=== PATIENT | male | born 1950 | race Caucasian/White ===

== ENCOUNTER 2017-04-05 07:15 | Day surgery (SDC) | payer MEDICARE, MEDICAID ==
[~2017-04-05] VITALS: Ht 170.2 cm; Wt 57.2 kg
--- NOTE | ~2017-04-05 | OP ---
PATIENT NAME: BIGG MURRIETA MEDICAL RECORD: [id number] :46 LOCATION:[facility] ADMISSION DATE: SURGEON: VALENCIA THOMAS MD DATE OF OPERATION: 04/05/2017 PREOPERATIVE DIAGNOSES: Dyspepsia and history of peptic ulcer disease, now with peripheral vascular disease and cerebrovascular disease, in need for antiplatelet medications and anticoagulants. POSTOPERATIVE DIAGNOSES: Dyspepsia and history of peptic ulcer disease, now with peripheral vascular disease and cerebrovascular disease, in need for antiplatelet medications and anticoagulants. OPERATION PERFORMED: EGD with biopsy of distal esophageal mucosa and electrocautery of a small angiodysplastic lesion in the duodenal bulb. SURGEON: Valencia Thomas MD ANESTHESIA: TIVA per LABOURERS. REFERRING PHYSICIAN: Dr. Almazan is [place]. PREOPERATIVE NOTE: Mr. Murrieta is a 66-year-old white male, smoker with a well known generalized atherosclerotic cardiovascular disease who was referred to me with nonlateralizing and vague symptoms of dizziness and weakness and the findings on a carotid Doppler exam of bilateral stenoses within the bifurcation and internal carotid arteries of 50% to 69% diameter reduction. The patient also has had stents recently placed in his heart by Dr. Moses and also stents in his iliac or femoral vessels. He has been on Coumadin in the past but that was discontinued and also took Plavix for about a month after his latest coronary stent, presently not on any. He also reports symptoms of claudication and symptoms of frequent dyspepsia and heartburn type symptoms. He says he has had a history of a previous bleeding ulcer. I recommended that he have CT angiography of the aorta and runoff vessels to evaluate further his claudication symptoms to see if further intervention is warranted or can be attempted there and also he needs a CT angiogram to better delineate the stenoses present within his carotid arteries. He is to have an EGD today to determine whether or not he has an ulcer or is at significant increased risk for gastrointestinal bleeding with anticoagulants or antiplatelet medications. DESCRIPTION OF PROCEDURE: With the patient under TIVA per LABOURERS in lateral decubitus position, the video gastroscope was passed through the mouth and the pharynx into the upper esophagus. It was advanced downward. The esophagus appeared normal aside from very distally where the Z line was quite irregular. I did take some biopsies of the esophageal mucosa at the Z line. I thought this was consistent perhaps with some reflux, though he did not have a hiatal hernia or any significant laxity or deformation of the GE junction or hiatus apparently on this study. The stomach, cardia, fundus, body, and antrum all appeared normal. The pylorus was normal and the duodenum, first, second and third portions examined were normal with the exception of a small angiodysplastic lesion on the anterior wall of the duodenal bulb. This was about a half a centimeter in diameter. It was treated with gold probe cautery and I was pleased with that result. Insufflated air was suctioned away and the scope withdrawn. OPERATIVE REPORT [id number] BIGG MURRIETA I believe the patient is likely to be of very acceptable risk for Plavix or other antiplatelet therapy. He has had his CT angiogram of the aorta and distal runoff today. He has areas of stenoses which are probably approachable for additional balloon angioplasty and stenting and this may be done likely in the future to help his claudication. He has yet to have his carotid CTA. He is going to be scheduled to come back on Tuesday to have that done and then see me in the office that day. The patient tolerated the procedure well. I am giving him a prescription for Pepcid 20 mg 1 b.i.d., 60 of them with 2 refills, which he is to take to treat his dyspepsia and hopefully act as a prophylaxis against any GI bleeding or ulcer diathesis. TRANSINT:[id number] Voice Confirmation ID: [id number] DOCUMENT ID: [id number] VALENCIA THOMAS MD CC: KAROL ALMAZAN MD [id number] DICTATION DATE: 04/05/17 1448 HEALTH SAFETY AND ENVIRONMENT MANAGER: 04/05/17 2258 [facility] 04/05/17 [id number] [place] [address]
[~2017-04-05 07:15] MED LIST: ALBUTEROL0.63 MG/3 INH; COREG 3.1253.125 MG PO; COZAAR25 MG PO; DALIRESP500 MCG PO; FUROSEMIDE40 MG PO; LIPITOR40 MG PO; NORCO 7.5/325 T1 TA1 PO; OMEPRAZOLE20 M1 PO; POTASSIUM CHLO20 MEQ PO; SINGULAIR10 MG PO; VALIUM5 MG PO; VENTOLIN HFA18 GM INH; ZANTAC150 MG PO
[2017-04-05] MEDS ORDERED: FLINTSTONE1 TAB.CHEW PO (08:05)
[2017-04-05] MEDS ORDERED: ASPIRIN325 MG PO (08:05)
[2017-04-05 08:10] VITALS: Ht 170.2 cm; Wt 57.2 kg
[2017-04-05 08:46] LABS: BASOPHILS 0.5 % (0-2); EOSINOPHILS 1.6 % (0-7); HEMATOCRIT 43.2 % (42.0-54.0); HEMOGLOBIN 13.8 g/dL (13.5-17.5); IMMATURE GRANULOCYTES 0.2 % (0-5); LYMPHOCYTES 26.2 % (15-50); MCH 28.8 pg (26.0-34.0); MCHC 31.9 g/dL (31.0-37.0); MEAN PLATELET VOLUME 10.7 fL (7.4-10.4); MONOCYTES 10.2 % (2-11); NEUTROPHILS 61.3 % (40-80); PLATELET COUNT 196 10x3/uL (130-400); WBC 9.7 10x3/uL (4.8-10.8)
[2017-04-05] MEDS ORDERED: PEPCID20 MG PO (13:16)
--- NOTE | 2017-04-05 15:02 | NUR ---
1325 DRESSED. GIVEN MED REC., [facility] CALLED IN TO [facility], SHEET LISTING NSAIDS TO AVOID FOR 14 DAYS, [facility] OPS D/C INSTRUCTIONS INCLUDING NPO INSTRUCTIONS & TIME TO ARRIVE 04/11/17 FOR 4 VESSEL/CTA WITH WORK IN FOLLOWUP @ DR. THOMAS'S LISTED. PT. VOICED UNDERSTANDING. TO PRIVATE CAR PER WHEELCHAIR. HOME WITH FAMILY. Reji JOE R.N.
== END 2017-04-05 13:25 | disposition home or self-care (01) ==
LOC: D.OPS 07:15
PROVIDERS: Anesthesiology
DX: K20.9 Esophagitis, unspecified (principal); K31.819 Angiodysplasia of stomach and duodenum without bleeding; Z87.11 Personal history of peptic ulcer disease; I70.219 Atherosclerosis of native arteries of extremities with intermittent claudication, unspecified extremity; I25.10 Atherosclerotic heart disease of native coronary artery without angina pectoris; Z95.5 Presence of coronary angioplasty implant and graft; I65.23 Occlusion and stenosis of bilateral carotid arteries; F17.200 Nicotine dependence, unspecified, uncomplicated; Z01.812 Encounter for preprocedural laboratory examination

== ENCOUNTER → 2017-04-11 08:07 | Outpatient (CLI) | payer MEDICARE, MEDICAID ==
[2017-04-05 08:10] VITALS: BMI 19.7
[~2017-04-11 08:07] MED LIST changes: +ASPIRIN325 MG PO; +FLINTSTONE1 TAB.CHEW PO; +PEPCID20 MG PO
== END | disposition home or self-care (01) ==
LOC: D.SP 08:00 → D.OPS 08:00 → D.CT 08:07
DX: R09.89 Other specified symptoms and signs involving the circulatory and respiratory systems (principal)

== ENCOUNTER 2017-05-20 21:34 | Inpatient (IN) | payer MEDICARE, MEDICAID ==
[2017-05-20 22:26] LABS: BASOPHILS 0.1 % (0-2); EOSINOPHILS 0.1 % (0-7); HEMATOCRIT 40.9 % (42.0-54.0); HEMOGLOBIN 13.7 g/dL (13.5-17.5); IMMATURE GRANULOCYTES 4.9 % (0-5); LYMPHOCYTES 9.6 % (15-50); MCH 29.9 pg (26.0-34.0); MCHC 33.5 g/dL (31.0-37.0); MCV 89.3 fL (80.0-100.0); MEAN PLATELET VOLUME 10.3 fL (7.4-10.4); NEUTROPHILS 76.3 % (40-80); PLATELET COUNT 206 10x3/uL (130-400); RBC 4.58 10x6/uL (4.20-6.10); RDW 16.1 % (11.5-14.5); WBC 17.4 10x3/uL (4.8-10.8)
[2017-05-20 22:41] LABS: ALBUMIN 3.2 g/dL (3.4-5.0); BILIRUBIN - TOTAL 0.6 mg/dL (0.2-1.3); CALCIUM 9.1 mg/dL (8.5-10.1); CARBON DIOXIDE 31.4 mmol/L (21.0-32.0); CREATININE - SERUM 1.5 mg/dL (0.6-1.3); POTASSIUM - SERUM 4.4 mmol/L (3.5-5.1); PROTEIN - SERUM 6.5 g/dL (6.4-8.2)
[2017-05-20 23:01] LABS: TROPONIN-I 0.169 ng/mL (0.000-0.060)
[2017-05-21] VITALS (10 sets, daily range): BP systolic 117–163; BP diastolic 76–111; BMI 19.6; BMI 19.5
--- NOTE | 2017-05-21 02:11 | NUR ---
ADMISSION ASSESSMETN, HISTORY COMPLETED. VSS. UCAF PER CM HR 109. O2 2LNC. IV TO LFA SL. PT DENIES ANY DISCOMFORT. FAMILY AT BEDSIDE.
[2017-05-21] MEDS ORDERED: ELIQUIS5 MG PO ×2 (02:18→02:19)
[2017-05-21] MEDS ORDERED: BENZONATATE200 MG PO (02:27)
[2017-05-21] MEDS ORDERED: SYMBICORT 16010.2 GM INH (02:27)
[2017-05-21] MEDS ORDERED: PLAVIX75 MG PO (02:27)
[2017-05-21] MEDS ORDERED: VIBRAMYCIN 100100 MG PO (02:28)
[2017-05-21] MEDS ORDERED: ATROVENT 0.02%2.5 ML UPD (02:29)
[2017-05-21] MEDS ORDERED: MUCINEX600 MG PO (02:29)
[2017-05-21] MEDS ORDERED: XOPENEX 0.0.63 MG/3 UPD (02:30)
[2017-05-21] MEDS ORDERED: NICODERM C1 PATCH .3 (02:30)
[2017-05-21] MEDS ORDERED: FLORAJEN3 CAPS460 MG PO (02:31)
[2017-05-21] MEDS ORDERED: BETAPACE 80 MG80 MG PO (02:31)
[2017-05-21] MEDS ORDERED: PREDNISONE20 MG PO ×3 (02:33→02:35)
[2017-05-21] MEDS ORDERED: PREDNISONE10 MG (02:36)
--- NOTE | 2017-05-21 04:47 | NUR ---
PT CONVERTEDT O SR HR 65. PT RESTING WITH EYES CLOSED. RESP EVEN AND REGULAR. SR UP X2, CALL LIGHT WITHIN REACH.
--- NOTE | 2017-05-21 06:21 | NUR ---
VSS THIS AM. SR PER CM. PT DENIES ANY DISCOMFORT. NEEDS MET; WILL CONTINUE TO MONITOR.
--- NOTE | 2017-05-21 07:35 | NUR ---
PT SITTING UP IN BED WATCHING TV DENIES NEEDS WILL CONT TO MONITOR
--- NOTE | 2017-05-21 17:26 | NUR ---
APPLICATION SYSTEMS ENGINEER YELLED OUT THAT PT WAS IN AFLUTTER RATE 93. PT IS C/O SOB. NO CHEST PAIN. VS ARE ARE WNL. PAGED DR RIOS. DR RIOS SAID TO GIVE PT AN EXTRA DOSE OF THE RYTHMOL ALREADY ORDERED AND NOTIFY HIM IN A COUPLE OF HOURS IF RYTHM DOESNT CHANGE. DONE.
--- NOTE | 2017-05-21 18:10 | NUR ---
CALLED TO PT ROOM PT SOB IS INCREASINGLY WORSE O2 SATS 95% ON 2L. PT STILL IN AFLUTTER 93 BPM. BP IS 196/[address] RIOS. AND RAPID RESPONSE CALLED DR RIOS ORDERED FOR PT TO BE ON CORDORONE DRIP 360 1 MG FOR 6 HOURS THEN CHANGE TO 0.5 MG. DONE AND STARTED. DR COVINGTON ORDERED PT TO GO TO ICU FOR CLOSER MONITORING...
[2017-05-21 18:51] LABS: HEMATOCRIT 39.7 % (42.0-54.0); MCH 29.7 pg (26.0-34.0); MCHC 32.7 g/dL (31.0-37.0); MCV 90.8 fL (80.0-100.0); MEAN PLATELET VOLUME 10.6 fL (7.4-10.4); PLATELET COUNT 186 10x3/uL (130-400); RBC 4.37 10x6/uL (4.20-6.10); RDW 16.3 % (11.5-14.5); WBC 22.2 10x3/uL (4.8-10.8)
[2017-05-21 19:06] LABS: ALBUMIN 2.9 g/dL (3.4-5.0); ALKALINE PHOSPHATASE 110 U/L (46-116); ALT (SGPT) 75 U/L (10-68); BILIRUBIN - TOTAL 0.63 mg/dL (0.2-1.3); CALCIUM 8.4 mg/dL (8.5-10.1); CARBON DIOXIDE 29.1 mmol/L (21.0-32.0); CHLORIDE - SERUM 102 mmol/L (98-107); CREATININE - SERUM 1.6 mg/dL (0.6-1.3); POTASSIUM - SERUM 4.6 mmol/L (3.5-5.1); PROTEIN - SERUM 6.3 g/dL (6.4-8.2); SODIUM 136 mmol/L (136-145); UREA NITROGEN 52 mg/dL (7-18); eGFR NON AFRICAN AMERICAN 46 mL/min (90-120)
--- NOTE | 2017-05-21 19:10 | NUR ---
PATIENT ARRIVED FROM FLOOR VIA BED. PATIENT STATES HE IS BREATHING BETTER NOW. ATRIAL FLUTTER SEEN ON MONITOR WITH A RATE OF 85, CORDARONE DRIP INFUSING @ 1MG/MIN. NC 4L, SAT 98%, AFEBRILE, VSS. LABS REVIEWED AND DR COVINGTON PAGED, ORDERS RECEIVED TO DRAW BLOOD GAS AND CALL BACK WITH RESULTS.
[2017-05-21 19:14] LABS: CKMB 3.3 U/L (0.0-3.6); CREATINE KINASE 45 UL (21-232); PRO BNP 5183 pg/mL (0-125)
[2017-05-21 19:21] LABS: CALC OSMOLALITY 287 mosm/kg (275-300); GLUCOSE 135 mg/dL (74-106); TROPONIN-I 0.133 ng/mL (0.000-0.060)
[2017-05-21 19:44] LABS: LYMPHOCYTES 5 % (15-50); MONOCYTES 5 % (2-11); NEUTROPHILS 79 % (40-80)
[2017-05-21 19:45] LABS: PLATELET ESTIMATE NORMAL
--- NOTE | 2017-05-21 20:30 | NUR ---
DR COVINGTON NOTIFIED WITH BLOOD GAS RESULTS, NO NEW ORDERS.
--- NOTE | 2017-05-21 21:00 | NUR ---
FAMILY AT BEDSIDE, UPDATE GIVEN.
--- NOTE | 2017-05-21 23:00 | NUR ---
REASSESSMENT COMPLETE, PATIENT WAS RESTING WITH EYES CLOSED, VSS, NO ACUTE CHANGES. STATES HE FEELS MUCH BETTER.
[2017-05-22] VITALS (25 sets, daily range): BP systolic 101–166; BP diastolic 85–120
--- NOTE | 2017-05-22 01:00 | NUR ---
PATIENT RESTING IN BED WITH EYES CLOSED. RESTING WELL. VSS. RR EVEN AND NONLABORED.
--- NOTE | 2017-05-22 03:00 | NUR ---
REASSESSMENT COMPLETE, PATIENT STATES "FEELING 100% BETTER" NO ACUTE CHANGES. SEE FLOWSHEET.
[2017-05-22 04:03] LABS: BASOPHILS 0.1 % (0-2); EOSINOPHILS 0 % (0-7); HEMATOCRIT 37.9 % (42.0-54.0); HEMOGLOBIN 12.4 g/dL (13.5-17.5); IMMATURE GRANULOCYTES 3.2 % (0-5); LYMPHOCYTES 7.6 % (15-50); MCH 29.4 pg (26.0-34.0); MCHC 32.7 g/dL (31.0-37.0); MCV 89.8 fL (80.0-100.0); MEAN PLATELET VOLUME 10.4 fL (7.4-10.4); MONOCYTES 5.2 % (2-11); NEUTROPHILS 83.9 % (40-80); PLATELET COUNT 194 10x3/uL (130-400); RBC 4.22 10x6/uL (4.20-6.10); RDW 16.2 % (11.5-14.5); WBC 20.8 10x3/uL (4.8-10.8)
[2017-05-22 04:20] LABS: CALC OSMOLALITY 285 mosm/kg (275-300); CALCIUM 7.9 mg/dL (8.5-10.1); CARBON DIOXIDE 31.2 mmol/L (21.0-32.0); CHLORIDE - SERUM 102 mmol/L (98-107); CKMB 2.7 U/L (0.0-3.6); CREATINE KINASE 42 UL (21-232); CREATININE - SERUM 1.5 mg/dL (0.6-1.3); GLUCOSE 110 mg/dL (74-106); POTASSIUM - SERUM 4.5 mmol/L (3.5-5.1); SODIUM 136 mmol/L (136-145); TROPONIN-I 0.085 ng/mL (0.000-0.060); UREA NITROGEN 48 mg/dL (7-18); eGFR NON AFRICAN AMERICAN 49 mL/min (90-120)
--- NOTE | 2017-05-22 04:49 | NUR ---
PATIENT REFUSED ABG BY RT.
--- NOTE | 2017-05-22 04:49 | NUR ---
PT.REFUSED ABG THIS AM
--- NOTE | 2017-05-22 08:26 | NUR ---
DUE TO BLODDY STOOL THIS AM ELIQUISE HELD UNTIL AFTER MD MAKES ROUNDS SPECIMEN SENT TO LAB
--- NOTE | 2017-05-22 09:15 | NUR ---
AWAKE AND ALERT SKIN WARM AND DRY. MONITOR ATRIAL FIB. CORDARON GTT AT 0.5 MG AT 16.7 ML HOUR. IN LEFT FOREARM. NO REDNESS OR SWELLING AT SITE. VOIDING CLEAR CHIQUI URINE IN URINAL. BREAKFAST SERVED. PULSE OX GOES DOWN WHEN EATING OR USING THE URINAL. DR. COVINGTON NOTIFIED OF BLOODY STOOL
[2017-05-22 10:38] LABS: HEMATOCRIT 42.6 % (42.0-54.0); MCH 29.7 pg (26.0-34.0); MCHC 32.9 g/dL (31.0-37.0); MCV 90.3 fL (80.0-100.0); MEAN PLATELET VOLUME 10.5 fL (7.4-10.4); RBC 4.72 10x6/uL (4.20-6.10); RDW 16.1 % (11.5-14.5); WBC 27.4 10x3/uL (4.8-10.8)
[2017-05-22 10:44] LABS: APTT 26.4 SECONDS (22.8-39.4); INR 1.21 (0.85-1.17); PROTIME 15.2 SECONDS (11.6-15.0)
[2017-05-22 16:31] LABS: HEMATOCRIT 40.5 % (42.0-54.0); HEMOGLOBIN 13.6 g/dL (13.5-17.5)
--- NOTE | 2017-05-22 16:54 | NUR ---
LAB REPORTS PTT AT 193.4, REDRAWING. LAST PTT 26.4. PHLABOTAMIST NAHOMY BLOOD OUT OF ARM THAT HEPARIN WAS INFUSING IN.
--- NOTE | 2017-05-22 18:05 | NUR ---
HEAPRIN GTT OFF FOR 1 HOUR FROM 1650 TO 1750 RESTARTED AT 1000 UNITS AN HOUR
--- NOTE | 2017-05-22 19:45 | NUR ---
SHIFT ASSESSMENT COMPLETE AT THIS TIME. HE DENIES ANY PAIN. A&O X4. NC @ 2 L/MIN, RR REGULAR AND UNLABORED, LUNG SOUNDS CLEAR THROUGHOUT ALL LOBES. S1S2 AUDIBLE, HR 83 BPM, NORMAL SINUS RHYTHM. ABD IS FLAT, NONTENDER TO TOUCH, BS ACTIVE X4. RADIAL AND PEDAL PULSES PALP. L FOREARM PIV PROTONIX @ 10 ML/HR, AMIODARONE @ 0.5 MG/MIN. R FOREARM PIV INFUSING HEAPRIN @ 1000 UN/HR. REPOSITIONED FOR COMFORT. HE DENIES ANY REQUESTS. CALL LIGHT IN REACH. BED IN LOWEST POSITION. WILL CONT WITH POC.
--- NOTE | 2017-05-22 21:00 | NUR ---
FAMILY AT BEDSIDE. PT STATES THAT HE FEELS WEAK AT THIS TIME. ATE BANANA AND STATES THAT HE FEELS BETTER. VSS. REPOSITIONED FOR COMFORT. WILL CONT WITH POC.
--- NOTE | 2017-05-22 22:30 | NUR ---
PTT 162.7. DECREASED HEPARIN TO 700 UN/HR AND HELD FOR ONE HOUR PER PROTOCOL.
--- NOTE | 2017-05-22 23:30 | NUR ---
RESTARTED HEPARIN @ 700 UN/HR NEXT SCHEDULED PTT IS AT 0430 ON 05/23/17 WILL CONT WITH POC.
[2017-05-23] VITALS (24 sets, daily range): BP systolic 118–161; BP diastolic 90–122
--- NOTE | 2017-05-23 01:00 | NUR ---
PT RESTING PEACEFULLY ON HIS BACK WITH NO SIGNS OF DISTRESS NOTED. VSS. WILL CONT WITH POC.
--- NOTE | 2017-05-23 03:00 | NUR ---
REASSESSMENT COMPLETE. BP IS ELEVATED. ADMINISTERED PRN LABETALOL. WILL CONT TO MONITOR BP. NO FURTHER CHANGES NOTED. REFILLED REFRESHMENTS. REPOSITIONED FOR COMFORT. CALL LIGHT IN REACH. WILL CONT TO MONITOR.
--- NOTE | 2017-05-23 05:00 | NUR ---
PTT 97.9 PAUSED HEPARIN FOR 30 MIN WILL DECREASE BY 100 UN AND REDRAW IN 6 HRS. PT VSS. BP 123/92 AT THIS TIME. PT STATES THAT HE IS FEELING MUCH BETTER. REFILLED REFRESHMENTS. WILL CONT WITH POC.
[2017-05-23 05:09] LABS: BASOPHILS 0.1 % (0-2); EOSINOPHILS 0 % (0-7); HEMATOCRIT 37.7 % (42.0-54.0); HEMOGLOBIN 12.7 g/dL (13.5-17.5); IMMATURE GRANULOCYTES 2.7 % (0-5); LYMPHOCYTES 6.5 % (15-50); MCH 29.6 pg (26.0-34.0); MCHC 33.7 g/dL (31.0-37.0); MEAN PLATELET VOLUME 10.7 fL (7.4-10.4); NEUTROPHILS 88.7 % (40-80); PLATELET COUNT 206 10x3/uL (130-400); RBC 4.29 10x6/uL (4.20-6.10)
[2017-05-23 05:14] LABS: WBC 19.4 10x3/uL (4.8-10.8)
[2017-05-23 05:15] LABS: INR 1.19 (0.85-1.17); MCV 87.9 fL (80.0-100.0)
[2017-05-23 05:17] LABS: APTT 97.9 SECONDS (22.8-39.4)
[2017-05-23 05:28] LABS: ANION GAP 13.4 mmol/L (8-16); BILIRUBIN - TOTAL 0.7 mg/dL (0.2-1.3); CALCIUM 8.3 mg/dL (8.5-10.1); CARBON DIOXIDE 29.6 mmol/L (21.0-32.0); PROTEIN - SERUM 6.2 g/dL (6.4-8.2)
[2017-05-23 05:43] LABS: CREATININE - SERUM 1.9 mg/dL (0.6-1.3)
--- NOTE | 2017-05-23 07:15 | NUR ---
PT ALERT AND ORIENTED, VSS, DENIES PAIN, PIV TO LEFT AND RIGHT FOREARM CDI, CONTINUES ON HEPARIN, AMIODARONE, AND PROTONIX, ASSESSMENT COMPLETED, WILL CONTINUE TO MONITOR
--- NOTE | 2017-05-23 09:00 | NUR ---
PT REPSOITIONS SELF DENIES PAIN AND ALL NEEDS, FAMILY IN ROOM FOR VISITATION, WILL CONTINUE TO MONITOR
--- NOTE | 2017-05-23 10:20 | NUR ---
NUTRITION F/U CHART REVIEWED. PT CURRENTLY SLEEPING. NURSING REPORTS PT WITH GOOD INTAKE AHA BREAKFAST. ENSURE AT BEDSIDE. WILL CONTINUE TO PROVIDE DIET, ENSURE. MONITOR PO INTAKE. RD FOLLOWING
--- NOTE | 2017-05-23 11:09 | NUR ---
NO CHANGES NOTED, VSS, APTT 69.4, NO HEPARIN RATE CHANGES, NO BOLUS, WILL REDRAW IN AM PER PROTOCOL, WILL CONTIN UE TO MONITOR
--- NOTE | 2017-05-23 12:53 | NUR ---
* Is the patient Alert and Oriented? Yes 0 * How many steps to enter\exit or inside your home? 1 0 * PCP Dr. Almazan 0 * [facility] 0 * Preadmission Environment Home with Family 0 * ADLs Partial Dependent 0 * Partial ADLs (Assistance needed) Ambulation 0 * Equipment Cane Nebulizer Oxygen 0 * List name and contact numbers for known caregivers / representatives who currently or will assist patient after discharge: Spouse - Chasity [phone] Daughter - Samantha [phone] 0 * Additional services required to return to the preadmission environment? Yes 0 * Can the patient safely return to the preadmission environment? Yes 0 * Has this patient been hospitalized within the prior 30 days at any hospital? Yes 05/23/2017 12:53 DCP: Discharge Planning Patient Name: BIGG ORTIZ Admission Status: ER Accout number: [id number] Admission Date: 05-20-2017 : 1950 Admission Diagnosis: Attending: NORM COVINGTON Current LOS: 3 Planned Disposition: Home with Home Health Primary Insurance: [employer]ARE ADV Discharge Planning Comments: CM met with patient to assess dc plans/needs. Patient states he lives at home with his , Chasity. He reports he uses a cane for mobility. He also uses a nebulizer and has home O2 @ 2L. He is currently on service with [employer] & wants to resume their services at discharge. CM will follow & assist as needed. Grizzly Worker: Mercedes Kearney
--- NOTE | 2017-05-23 13:04 | NUR ---
PT REFUSED LUNCH, KEPT ENSURE AND STATED HE WILL TRY TO DRINK IT, VSS, DENIES PAIN, REPOSITIONED, WILL CONTINUE TO MONITOR
--- NOTE | 2017-05-23 14:28 | NUR ---
PT HAD ONE FORMED DARK STOOL, TAKEN TO LAB, DENIES ALL NEEDS, WILL CONTIN UE TO MONITOR
--- NOTE | 2017-05-23 14:57 | NUR ---
pt to transfer to room 2140, report called to rita
--- NOTE | 2017-05-23 17:09 | NUR ---
PT REPOSITIONED FOR DINNER, VSS, DENIES PAIN AND ALL NEEDS, CONTINUES ON AMIODARONE, HEPARIN AND PROTONIX DRIPS, SEE FLOWSHEET, WILL CONTINUE TO MONITOR
--- NOTE | 2017-05-23 19:30 | NUR ---
REC'D PT SITTING UP IN BED ON O2 @ 2 LITERS, AWAKE, ALERT, ORIENTED X 4, RIGHT FOREARM PIV PATENT WITH HEPARIN INFUSING @ 600 UNITS/HR, LEFT FOREARM PIV PATENT WITH PROTONIX @ 10CC/HR AND NEXTERONE @ 16.7CC/HR, PT GODINEZ'S , PT DENIES PAIN, BILAT SCD'S AND SOCKS ON, SR UP X 2, BED IN LOW POSITION, CALL LIGHT IN REACH.
--- NOTE | 2017-05-23 21:00 | NUR ---
FAMILY @ BS, UPDATE GIVEN AND QUESTIONS ANSWERED.
--- NOTE | 2017-05-23 22:00 | NUR ---
EVENING MEDS GIVEN, URINAL EMPTIED OF 325 CLEAR YELLOW URINE, PT DENIES NEEDS, WILL CONT TO MONITOR FOR CHANGES.
--- NOTE | 2017-05-23 23:15 | NUR ---
PT RESTING IN BED WATCHING TV, BP ELEVATED, PT DENIES PAIN OR NEEDS, SR UP X 2, CALL LIGHT IN REACH.
[2017-05-24] VITALS (46 sets, daily range): BP systolic 104–169; BP diastolic 86–118
--- NOTE | 2017-05-24 01:00 | NUR ---
PT RESTING ON RIGHT SIDE EYES CLOSED, RESP EVEN AND UNLABORED, VSS, WILL CONT TO MONITOR FOR CHANGES.
--- NOTE | 2017-05-24 03:00 | NUR ---
NO CHANGES IN STATUS AT THIS TIME
--- NOTE | 2017-05-24 03:45 | NUR ---
REASSESSMENT COMPLETED, NO CHANGES FROM PREVIOUS ASSESSMENT.
--- NOTE | 2017-05-24 04:15 | NUR ---
LAB AT FOR AM LAB DRAW, PT AWAKE REQUESTING COFFEE, COFFEE AND CUP OF ICE PROVIDED, PT DENIES FURTHER NEEDS.
[2017-05-24 04:16] LABS: BASOPHILS 0.1 % (0-2); EOSINOPHILS 0 % (0-7); HEMATOCRIT 36.1 % (42.0-54.0); HEMOGLOBIN 12.2 g/dL (13.5-17.5); IMMATURE GRANULOCYTES 1.7 % (0-5); LYMPHOCYTES 3.8 % (15-50); MCH 29.5 pg (26.0-34.0); MCHC 33.8 g/dL (31.0-37.0); MCV 87.2 fL (80.0-100.0); MEAN PLATELET VOLUME 10.5 fL (7.4-10.4); MONOCYTES 3.1 % (2-11); NEUTROPHILS 91.3 % (40-80); PLATELET COUNT 216 10x3/uL (130-400); RBC 4.14 10x6/uL (4.20-6.10); RDW 15.8 % (11.5-14.5); WBC 30.8 10x3/uL (4.8-10.8)
[2017-05-24 04:23] LABS: ALBUMIN 2.8 g/dL (3.4-5.0); ANION GAP 9.6 mmol/L (8-16); BILIRUBIN - TOTAL 0.69 mg/dL (0.2-1.3); CALCIUM 8.3 mg/dL (8.5-10.1); CARBON DIOXIDE 30.7 mmol/L (21.0-32.0); CREATININE - SERUM 1.8 mg/dL (0.6-1.3); MAGNESIUM - SERUM 2.1 mg/dL (1.8-2.4); POTASSIUM - SERUM 4.3 mmol/L (3.5-5.1); PROTEIN - SERUM 6.1 g/dL (6.4-8.2)
--- NOTE | 2017-05-24 06:30 | NUR ---
AT BS UPDATE GIVEN AND QUESTIONS ANSWERED, AM MEDS GIVEN, PT DENIES PAIN OR NEEDS, SR UP X 2, CALL LIGHT IN REACH.
--- NOTE | 2017-05-24 07:30 | NUR ---
REPORT RECEIVED. ASSUMED CARE OF PATIENT. PT AWAKE, CURRENTLY WITH BREATHING TREATMENT IN PROCESS.
--- NOTE | 2017-05-24 11:00 | NUR ---
PT SITTING UP IN BED. JUST FINISHED URINATING. 400ML OUT. ASKING FOR ICE WATER.
--- NOTE | 2017-05-24 13:45 | NUR ---
PAGED DR PETERS ABOUT ELEVATED WBC AND ONLY ON ORAL ABX. SAYS HE SPOKE WITH DR REGALADO ABOUT IT. DOES NOT FEEL IS DUE TO INFECTION, XRAY CLEAR. WILL CONTINUE TO MONITOR. ALSO TO STOP AMIODARONE DRIP AND START ORAL 200MG BID THIS EVENING.
--- NOTE | 2017-05-24 13:57 | NUR ---
AMIODARONE DRIP TURNED OFF. PT SLEEPING AT THIS TIME. NO DISTRESS NOTED. CONSUMED 25% OF LUNCH.
--- NOTE | 2017-05-24 15:54 | NUR ---
PT SLEEPING AT THIS TIME. NO DISTRESS NOTED.
--- NOTE | 2017-05-24 19:50 | NUR ---
REPORT REC'D AND CARE ASSUMED, REC'D PT AWAKE, ALERT, ORIENTED X 3, O2 @ 2LITERS VIA NCA, LEFT FOREARM PIV WITH PROTONIX @ 8MG/HR OR 10CC/HR AND RIGHT FOREARM PIV WITH HEPARIN INFUSING @ 400 UNITS/HR, PT MAEE, PT DENIES PAIN OR NEEDS, BED IN LOW POSITION, CALL LIGHT IN REACH.
--- NOTE | 2017-05-24 21:00 | NUR ---
EVENING MEDS GIVEN, AT BS, QUESTIONS ANSWERED, PT DENIES NEEDS, CALL LIGHT IN REACH.
--- NOTE | 2017-05-24 23:08 | NUR ---
REASSESSMENT COMPLETED, VSS, PT RESTING ON LEFT SIDE EYES CLOSED, ROUTINE MEDS GIVEN, WILL CONT TO MONITOR FOR CHANGES.
[2017-05-25] VITALS (21 sets, daily range): BP systolic 126–170; BP diastolic 86–120
--- NOTE | 2017-05-25 01:30 | NUR ---
URINAL EMPTIED OF 400CC CLEAR YELLOW URINE, VSS, PT RESTING IN BED EYES CLOSED, RESP EVEN AND UNLABORED, VSS.
--- NOTE | 2017-05-25 03:10 | NUR ---
REASSESSMENT COMPLETED, NO CHANGES FROM PREVIOUS ASSESSMENT, VSS, WILL MONITOR CLOSELY FOR CHANGES.
--- NOTE | 2017-05-25 04:00 | NUR ---
LAB AT FOR AM LAB DRAW
[2017-05-25 05:08] LABS: BASOPHILS 0 % (0-2); EOSINOPHILS 0 % (0-7); HEMOGLOBIN 11.9 g/dL (13.5-17.5); IMMATURE GRANULOCYTES 2.2 % (0-5); LYMPHOCYTES 3.7 % (15-50); MCH 29.7 pg (26.0-34.0); MCV 87.3 fL (80.0-100.0); MEAN PLATELET VOLUME 10.8 fL (7.4-10.4); MONOCYTES 1.8 % (2-11); NEUTROPHILS 92.3 % (40-80); PLATELET COUNT 222 10x3/uL (130-400); RBC 4.01 10x6/uL (4.20-6.10); WBC 22.3 10x3/uL (4.8-10.8)
[2017-05-25 05:10] LABS: INR 1.13 (0.85-1.17); PROTIME 14.4 SECONDS (11.6-15.0)
[2017-05-25 05:14] LABS: ALBUMIN 2.8 g/dL (3.4-5.0); BILIRUBIN - TOTAL 0.81 mg/dL (0.2-1.3); CALCIUM 7.8 mg/dL (8.5-10.1); CARBON DIOXIDE 29.1 mmol/L (21.0-32.0); CREATININE - SERUM 1.8 mg/dL (0.6-1.3); POTASSIUM - SERUM 4.1 mmol/L (3.5-5.1); PROTEIN - SERUM 5.9 g/dL (6.4-8.2)
--- NOTE | 2017-05-25 06:30 | NUR ---
AM MEDS GIVEN, AT BS, UPDATE GIVEN AND QUESTIONS ANSWERED, ICE WATER PROVIDED ON REQUEST.
--- NOTE | 2017-05-25 19:30 | NUR ---
REPORT REC'D AND CARE ASSUMED, REC'D PT AWAKE, ALERT, ORIENTED X 4, LEFT FOREARM PIV AND RIGHT FOREARM PIV SALINE LOCKED, BOTH SITES WITHOUT REDNESS OR EDEMA, PT MAEE, PT DENIES PAIN OR NEEDS, BED IN LOW POSITION CALL LIGHT IN REACH.
--- NOTE | 2017-05-25 21:00 | NUR ---
EVENING MEDS GIVEN ORDERED, PT DENIES NEEDS.
--- NOTE | 2017-05-25 21:15 | NUR ---
REPORT CALLED TO REYNALDO XIE ON MED II, PT TRANSPORTED VIA WHEELCHAIR.
--- NOTE | 2017-05-25 21:33 | NUR ---
ARRIVED TO FLOOR VIA WHEELCHAIR, ACCOMPANIED BY HOSPITAL STAFF AND FAMILY. PLACED ON TELEMETRY. CALL LIGHT IN REACH. WILL CONTINUE TO MONITOR.
--- NOTE | 2017-05-25 22:24 | NUR ---
UP TO SHOWER, FAMILY IN ROOM. WILL CONTINUE TO MONITOR.
--- NOTE | 2017-05-25 23:42 | NUR ---
IV TO RIGHT FOREARM LEAKING, DC'D WITH TIP INTACT. AT BEDSIDE, CALL LIGHT IN REACH.
[2017-05-26] VITALS: BP 170/103
--- NOTE | 2017-05-26 00:53 | NUR ---
CORRECTIONAL MANAGER AT BEDSIDE TO OBTAIN VITALS, CALL LIGHT IN REACH. WILL CONTINUE WITH PLAN OF CARE.
[2017-05-26 05:06] LABS: BASOPHILS 0.1 % (0-2); EOSINOPHILS 0 % (0-7); HEMATOCRIT 35.4 % (42.0-54.0); HEMOGLOBIN 11.9 g/dL (13.5-17.5); IMMATURE GRANULOCYTES 1.5 % (0-5); LYMPHOCYTES 5.6 % (15-50); MCH 29.3 pg (26.0-34.0); MCHC 33.6 g/dL (31.0-37.0); MCV 87.2 fL (80.0-100.0); MEAN PLATELET VOLUME 10.9 fL (7.4-10.4); MONOCYTES 4.1 % (2-11); NEUTROPHILS 88.7 % (40-80); PLATELET COUNT 234 10x3/uL (130-400); RBC 4.06 10x6/uL (4.20-6.10); RDW 16.1 % (11.5-14.5); WBC 18.3 10x3/uL (4.8-10.8)
[2017-05-26 05:32] LABS: INR 1.66 (0.85-1.17); PROTIME 19.6 SECONDS (11.6-15.0)
[2017-05-26 05:39] LABS: ANION GAP 8.4 mmol/L (8-16); CALCIUM 8.5 mg/dL (8.5-10.1); CREATININE - SERUM 1.8 mg/dL (0.6-1.3); POTASSIUM - SERUM 4.4 mmol/L (3.5-5.1)
--- NOTE | 2017-05-26 06:52 | NUR ---
NO CHANGES FROM PREVIOUS ASSESSMENT, CALL LIGHT IN REACH. WILL CONTINUE TO MONITOR.
--- NOTE | 2017-05-26 07:30 | NUR ---
RECEIVED PT IN BED EYES CLOSED RESP UNLABORED NAD NOTED
--- NOTE | 2017-05-26 07:49 | NUR ---
received pt in bed eyes closed resp unlabored nad nnoted
[2017-05-26 08:06] VITALS: BP 155/100
[2017-05-26 12:01] VITALS: BP 125/86
[2017-05-26 12:23] VITALS: BP 125/86
--- NOTE | 2017-05-26 13:23 | NUR ---
Nutrition Follow Up: Pt stated that his appetite was poor. He said that he felt very nauseated. Pt refused Ensure at this time stating that it made him sick. Pt said that his appetite has been decreased for the past week. Pt is eating 63% meal avg on an AHA diet. He is receiving Ensure BID. Wt loss since admit noted. Meds reviewed including Bumex, Prednisone. Labs noted. +BM 05/24/17. Rec continue current diet. Will d/c Ensure BID; pt may continue to order Ensure off menu if nausea resolves. RD following.
[2017-05-26 20:00] VITALS: BP 106/71
[2017-05-27] VITALS: BP 104/75
[2017-05-27 04:00] VITALS: BP 119/63; BP 134/76
[2017-05-27 05:22] LABS: BASOPHILS 0.1 % (0-2); EOSINOPHILS 0.1 % (0-7); HEMATOCRIT 34.6 % (42.0-54.0); HEMOGLOBIN 11.4 g/dL (13.5-17.5); IMMATURE GRANULOCYTES 1.8 % (0-5); LYMPHOCYTES 8.1 % (15-50); MCH 29.3 pg (26.0-34.0); MCHC 32.9 g/dL (31.0-37.0); MCV 88.9 fL (80.0-100.0); MEAN PLATELET VOLUME 10.7 fL (7.4-10.4); NEUTROPHILS 86.9 % (40-80); PLATELET COUNT 219 10x3/uL (130-400); RBC 3.89 10x6/uL (4.20-6.10); RDW 16.5 % (11.5-14.5)
[2017-05-27 05:27] LABS: WBC 13.6 10x3/uL (4.8-10.8)
[2017-05-27 05:31] LABS: ANION GAP 7.9 mmol/L (8-16); CALCIUM 8.2 mg/dL (8.5-10.1); CREATININE - SERUM 1.7 mg/dL (0.6-1.3); POTASSIUM - SERUM 4.9 mmol/L (3.5-5.1)
[2017-05-27 05:40] LABS: INR 2.94 (0.85-1.17); PROTIME 30.9 SECONDS (11.6-15.0)
[2017-05-27 07:38] VITALS: BP 130/97
--- NOTE | 2017-05-27 11:31 | CN ---
PATIENT NAME:BIGG ORTIZ MEDICAL RECORD: [id number] : [birth year] [place] [place]MIT DATE: 05/20/17 ACCOUNT: [id number] CONSULTING PHYSICIAN: ANN MARIE RIOS MD REFERRING PHYSICIAN: NORM COVINGTON DO DATE OF CONSULTATION: 05/21/2017 HISTORY OF PRESENT ILLNESS: A 66-year-old gentleman with multiple medical problems including severe COPD, paroxysmal atrial fibrillation with exacerbations as of late, admitted with worsening shortness of breath over the past 2-3 days, has baseline shortness of breath, cough. Cardiac enzymes are elevated, may be a stress leak with increased BUN and creatinine as well as marked wheezing on exam. We are asked to see him concerning his cardiovascular status. PAST MEDICAL HISTORY: Includes: 1. History of coronary artery disease as described above. 2. Hypertension. 3. Hyperlipidemia. 4. Severe obstructive pulmonary disease. 5. Peripheral vascular disease. ALLERGIES: None known. MEDICATIONS: Typically include doxycycline 100 b.i.d., Proventil q.6 p.r.n., Atrovent q.4 p.r.n., Eliquis 10 mg b.i.d., Plavix 75 q. day, sotalol 80 b.i.d., furosemide 40 q. day, potassium supplementation, Zantac 150 b.i.d., prednisone tapering dose. SOCIAL HISTORY: Lives in [place]. Continues to smoke. No set exercise program. He is able to take care of his ADLs. REVIEW OF SYSTEMS: The patient reports easy bruising but reports no swollen glands. The patient reports no fever, no night sweats, no significant weight gain, no significant weight loss. No significant exercise tolerance. The patient reports no dry eyes, no irritation, no vision change. Patient reports no difficulty hearing and no ear pain. Patient reports no frequent nose bleeds or nose and sinus problems. Patient reports on arm pain on exertion. No shortness of breath while lying down. No history of heart murmur. Patient reports no cough, no wheezing or coughing up blood. Patient reports no abdominal pain, no vomiting. Normal appetite. No diarrhea and not vomiting blood. No nausea and no constipation. Patient reports no incontinence. No difficulty urinating. No hematuria. No increased frequency. Patient reports no muscle aches. No weakness, no arthralgias, no back pain. No swelling of the extremities. Patient reports no abnormal mole, no jaundice, no rashes. Reports no loss of consciousness. No weakness and no numbness. No seizures, dizziness, or headaches. The patient reports no depression, no sleep disturbance, feeling safe in a relationship and no alcohol abuse. Patient reports on fatigue. Reports no runny nose or sinus pressure. No itching, no hives, and no frequent sneezing. PHYSICAL EXAMINATION: GENERAL: Somewhat cachectic-appearing gentleman, who appears chronically ill. VITAL SIGNS: Blood pressure 144/85, pulse currently 73 and regular. HEENT: Normocephalic, atraumatic. CONSULT REPORT [id number] COGROSALIE,LD NECK: No bruits are noted. HEART: Currently regular, II/ systolic ejection murmur. LUNGS: Prolonged expiratory phase and expiratory wheeze. ABDOMEN: Soft, nontender. EXTREMITIES: Pulses are decreased 1+. There is no edema. NEUROLOGIC: Grossly intact. DIAGNOSTIC DATA: Monitor currently shows sinus rhythm, previously atrial fibrillation. At this point in time, we will hold sotalol, start propafenone to avoid beta-blockade. Further recommendations based on above. TRANSINT:[id number] Voice Confirmation ID: [id number] DOCUMENT ID: [id number] ANN MARIE RIOS MD at 1131 CC: [id number] DICTATION DATE: 05/21/17 0857 CS ASSOCIATE: 05/21/17 0934 ADM IN [facility] [address] [place] [address]
[2017-05-27 11:51] VITALS: BP 127/79
[2017-05-27 15:55] VITALS: BP 146/90
[2017-05-27 19:00] VITALS: BP 144/90
[2017-05-28] VITALS: BP 110/86
[2017-05-28 04:00] VITALS: BP 127/96
[2017-05-28 05:14] LABS: BASOPHILS 0.1 % (0-2); EOSINOPHILS 0 % (0-7); HEMATOCRIT 32.9 % (42.0-54.0); HEMOGLOBIN 10.9 g/dL (13.5-17.5); IMMATURE GRANULOCYTES 1.6 % (0-5); LYMPHOCYTES 9.7 % (15-50); MCH 29.5 pg (26.0-34.0); MCHC 33.1 g/dL (31.0-37.0); MCV 88.9 fL (80.0-100.0); MEAN PLATELET VOLUME 11.1 fL (7.4-10.4); NEUTROPHILS 84.6 % (40-80); PLATELET COUNT 226 10x3/uL (130-400); RDW 16.3 % (11.5-14.5); WBC 13.5 10x3/uL (4.8-10.8)
[2017-05-28 05:36] LABS: INR 4.22 (0.85-1.17); PROTIME 41.2 SECONDS (11.6-15.0)
[2017-05-28 05:41] LABS: ANION GAP 10.2 mmol/L (8-16); CALCIUM 8.1 mg/dL (8.5-10.1); CARBON DIOXIDE 31.2 mmol/L (21.0-32.0); CREATININE - SERUM 1.6 mg/dL (0.6-1.3); POTASSIUM - SERUM 4.4 mmol/L (3.5-5.1)
[2017-05-28 08:00] VITALS: BP 110/79
[2017-05-28 12:00] VITALS: BP 101/79
[2017-05-28 16:00] VITALS: BP 126/98
--- NOTE | 2017-05-28 17:47 | NUR ---
REHAB PRESCREEN: THE PATIENT HASNT BEEN EVAL BY PT OR OT TO SEE IF QUALIFIES, SO JOSE NEEDS A ORDER FOR THEM TO EVAL. THE PATIENT HAS [employer] INSURANCE SO WILL NEED A PRIOR AUTHORZATION TO SEE IF HE CAN BE APPROVED TO COME. THANK YOU FOR THIS EVAL. RADHA LEHMAN LPN
--- NOTE | 2017-05-28 19:00 | NUR ---
RECEIVED REPORT AND ASSUMED PT CARE FROM DAY SHIFT NURSE @ THIS TIME.
[2017-05-28 20:52] VITALS: BP 113/86
--- NOTE | 2017-05-28 22:30 | NUR ---
PT RESTING IN BED WITHOUT C/O OR DISTRESS NOTED. DENIES ANY C/O PAIN @ THIS TIME. REMAINS A-FLUTTER ON TELE, HR 80'S. CALL LIGHT WITHIN REACH. WILL CONT TO MONITOR.
[2017-05-29 01:06] VITALS: BP 141/94
[2017-05-29 04:00] VITALS: BP 164/99
[2017-05-29 07:16] LABS: BASOPHILS 0.1 % (0-2); EOSINOPHILS 0.3 % (0-7); HEMATOCRIT 31.3 % (42.0-54.0); HEMOGLOBIN 10.2 g/dL (13.5-17.5); IMMATURE GRANULOCYTES 0.9 % (0-5); LYMPHOCYTES 10.1 % (15-50); MCH 29.2 pg (26.0-34.0); MCHC 32.6 g/dL (31.0-37.0); MCV 89.7 fL (80.0-100.0); MEAN PLATELET VOLUME 10.2 fL (7.4-10.4); MONOCYTES 6.3 % (2-11); NEUTROPHILS 82.3 % (40-80); PLATELET COUNT 220 10x3/uL (130-400); RBC 3.49 10x6/uL (4.20-6.10); RDW 16.4 % (11.5-14.5); WBC 16.7 10x3/uL (4.8-10.8)
[2017-05-29 07:29] LABS: INR 3.44 (0.85-1.17)
[2017-05-29 07:31] LABS: ANION GAP 7.6 mmol/L (8-16); CARBON DIOXIDE 33.1 mmol/L (21.0-32.0); CREATININE - SERUM 1.6 mg/dL (0.6-1.3)
[2017-05-29 07:37] LABS: CALCIUM 8.1 mg/dL (8.5-10.1)
[2017-05-29 07:38] LABS: POTASSIUM - SERUM 3.7 mmol/L (3.5-5.1)
[2017-05-29 08:00] VITALS: BP 124/91
[2017-05-29 16:00] VITALS: BP 91/68
[2017-05-29 19:00] VITALS: BP 115/75
--- NOTE | 2017-05-29 19:00 | NUR ---
RECEIVED REPORT AND ASSUMED PT CARE FROM DAY SHIFT NURSE @ THIS TIME.
[2017-05-30] VITALS: BP 136/76
[2017-05-30 04:22] VITALS: BP 162/96
[2017-05-30 05:35] LABS: BASOPHILS 0 % (0-2); EOSINOPHILS 0.5 % (0-7); HEMATOCRIT 28.2 % (42.0-54.0); HEMOGLOBIN 9.2 g/dL (13.5-17.5); IMMATURE GRANULOCYTES 1.8 % (0-5); LYMPHOCYTES 17.9 % (15-50); MCH 29.4 pg (26.0-34.0); MCHC 32.6 g/dL (31.0-37.0); MCV 90.1 fL (80.0-100.0); MEAN PLATELET VOLUME 10.3 fL (7.4-10.4); MONOCYTES 7.6 % (2-11); NEUTROPHILS 72.2 % (40-80); PLATELET COUNT 218 10x3/uL (130-400); RBC 3.13 10x6/uL (4.20-6.10); RDW 16.7 % (11.5-14.5)
[2017-05-30 05:46] LABS: INR 2.81 (0.85-1.17); PROTIME 29.8 SECONDS (11.6-15.0)
[2017-05-30 05:47] LABS: ALBUMIN 2.3 g/dL (3.4-5.0); ANION GAP 5.6 mmol/L (8-16); BILIRUBIN - TOTAL 0.33 mg/dL (0.2-1.3); CARBON DIOXIDE 34.3 mmol/L (21.0-32.0); CREATININE - SERUM 1.4 mg/dL (0.6-1.3); POTASSIUM - SERUM 3.9 mmol/L (3.5-5.1)
[2017-05-30 05:49] LABS: WBC 9.9 10x3/uL (4.8-10.8)
[2017-05-30 08:00] VITALS: BP 143/79
[2017-05-30 11:43] VITALS: BP 138/81
--- NOTE | 2017-05-30 13:47 | NUR ---
Nutrition Follow Up: Pt stated that his appetite remains poor. He said that he does not feel hungry and he feels the food has no flavor. Pt refused supplements. Pt is eating 44% meal avg on an AHA diet. Wt gain since admit - likely r/t fluid. +BM 05/29/17. Labs reviewed. Meds noted including Remeron, Bumex. Will change diet to regular to encourage po intake. RD following.
--- NOTE | 2017-05-30 13:50 | NUR ---
Patient Name: BIGG ORTIZ Encounter No: [id number] : 1950 Primary Insurance: [employer] MEDICARE ADV Anticipated DC Date: 05-31-2017 Planned Disposition: Home with Home Health External Planned Provider: [facility] DCP follow-up note: CM RECEIVED INPATIENT REHAB PRESCREENING ORDER, MET WITH PT AND DAUGHTER IN ROOM, DISCUSSED INPATIENT REHAB SERVICES, LOCATIONS AND PROVIDERS. PT REPORTS HE WILL NOT GO TO INPATIENT REHAB, PLANS TO GO HOME AND CONTINUE HOME HEALTH THERAPY SERVICES WITH [facility]. CM DISCUSSED AVAILABILITY OF ADDITIONAL MEDICAL EQUIPMENT AND SHELTER REHAB SERVICES. PT DENIES NEED OF BOTH. PT REPORTS HIS DAUGHTER WILL TRANSPORT HOME AT DISCHARGE. IMPORTANT MESSAGE FROM MEDICARE PROVIDED AND EXPLAINED. CM CALLED [facility], [facility]ES OFFICE, , SPOKE TO OSMAR, WHO VERIFIED PT IS ACTIVE ON HOLD FOR SHELTER SERVICES AND CAN ADD PHYSICAL THERAPY SERVICES IF NEEDED. CM FAXED UPDATE TO [facility] AT [phone]. ROSA DESOUZA NOTIFIED OF PT'S REFUSAL OF INPATIENT REHAB AND PLAN TO DISCHARGE HOME WITH RESUMPTION OF HOME HEALTH SERVICES. FOR DISCHARGE HOME WITH HOME HEALTH SERVICES, NOTIFY [facility] AT [phone], FAX DISCHARGE INFORMATION TO [phone]. Brandon Perez, CASE MANAGEMENT
[2017-05-30 16:00] VITALS: BP 138/71
[2017-05-30 19:00] VITALS: BP 104/68
[2017-05-31] VITALS: BP 140/77
[2017-05-31 04:28] VITALS: BP 141/80
[2017-05-31 06:10] LABS: PROTIME 35.7 SECONDS (11.6-15.0)
[2017-05-31 06:30] LABS: INR 3.52 (0.85-1.17)
--- NOTE | 2017-05-31 07:35 | NUR ---
ASSESSMENT COMPLETED. TELEMERTY SHOWS SR 69. LEFT FA SL. UP AB LORE. DENIES ANY NEEDS. FAMILY AT BEDSIDE. CALL LIGHT IN REACH WITH SR UP
[2017-05-31 09:05] VITALS: BP 131/76
--- NOTE | 2017-05-31 10:10 | NUR ---
UTLRUM 50MG GIVEN FOR C/O PAIN IN FEET. WILL MONITOR
[2017-05-31 12:16] VITALS: BP 103/73
[2017-05-31 13:03] LABS: BASOPHILS 0 % (0-2); EOSINOPHILS 0.3 % (0-7); HEMATOCRIT 27.4 % (42.0-54.0); HEMOGLOBIN 8.7 g/dL (13.5-17.5); IMMATURE GRANULOCYTES 0.7 % (0-5); LYMPHOCYTES 6.5 % (15-50); MCH 29.7 pg (26.0-34.0); MCHC 31.8 g/dL (31.0-37.0); MEAN PLATELET VOLUME 10.3 fL (7.4-10.4); NEUTROPHILS 85.5 % (40-80); PLATELET COUNT 203 10x3/uL (130-400); RBC 2.93 10x6/uL (4.20-6.10); RDW 17.4 % (11.5-14.5)
[2017-05-31 13:08] LABS: MCV 93.5 fL (80.0-100.0); WBC 17.3 10x3/uL (4.8-10.8)
[2017-05-31 13:19] LABS: ANION GAP 7.5 mmol/L (8-16); CALCIUM 8.1 mg/dL (8.5-10.1); CARBON DIOXIDE 34.3 mmol/L (21.0-32.0); CREATININE - SERUM 1.4 mg/dL (0.6-1.3)
[2017-05-31 13:20] LABS: POTASSIUM - SERUM 4.8 mmol/L (3.5-5.1)
--- NOTE | 2017-05-31 14:03 | NUR ---
LYING QUIETLY. DENIES ANY NEEDS. FAMILY AT BEDSIDE. TELEMERTY SHOWS SR. WILL MONITOR
[2017-05-31 15:25] VITALS: BP 93/67
--- NOTE | 2017-05-31 17:03 | NUR ---
OT NOTE: PT COMPLETED FUNCTIONALSITTING BALANCE TASKS WITH SBA. THANK YOU, BRANDON ACOSTA/Jarred
--- NOTE | 2017-05-31 17:58 | NUR ---
DENIES ANY NEEDS. UP WALKINH WITH . GAIT SLOW AND STEADY. TELEMERTY SHOWS SR. WILL MONITOR
[2017-05-31 19:00] VITALS: BP 110/67
--- NOTE | 2017-05-31 19:25 | NUR ---
ASSESSMENT COMPLETE, A&O. UP DRAFT CURRENTLY IN PROGRESS. IV TO LEFT FOREARM SL, SITE CLEAN AND DRY. PT AT BED SIDE, BED LOW, CL IN REACH. WILL CONT TO MONITOR.
--- NOTE | 2017-05-31 20:54 | NUR ---
HS MEDS GIVEN WITH FRESH ICE WATER, DENIES PAIN OR NEEDS, BED LOW, CL IN REACH.
--- NOTE | 2017-06-01 00:08 | NUR ---
VALUE STREAM COACH AT BED SIDE TO OBTAIN VITALS.
[2017-06-01 04:00] VITALS: BP 146/78
--- NOTE | 2017-06-01 04:58 | NUR ---
PT LYING IN BED, RESTING COMFORTABLY, CONTINUE TO MONITOR.
[2017-06-01 06:16] LABS: BASOPHILS 0.1 % (0-2); EOSINOPHILS 0.5 % (0-7); HEMATOCRIT 27.2 % (42.0-54.0); HEMOGLOBIN 8.7 g/dL (13.5-17.5); IMMATURE GRANULOCYTES 0.8 % (0-5); LYMPHOCYTES 9.2 % (15-50); MCH 29.7 pg (26.0-34.0); MCV 92.8 fL (80.0-100.0); MEAN PLATELET VOLUME 9.8 fL (7.4-10.4); MONOCYTES 7.1 % (2-11); NEUTROPHILS 82.3 % (40-80); PLATELET COUNT 209 10x3/uL (130-400); RBC 2.93 10x6/uL (4.20-6.10); RDW 17.3 % (11.5-14.5); WBC 17.2 10x3/uL (4.8-10.8)
[2017-06-01 06:26] LABS: PROTIME 29.1 SECONDS (11.6-15.0)
[2017-06-01 06:34] LABS: INR 2.73 (0.85-1.17)
[2017-06-01 06:38] LABS: ANION GAP 6.2 mmol/L (8-16); CALCIUM 8.2 mg/dL (8.5-10.1); CARBON DIOXIDE 35.4 mmol/L (21.0-32.0); CREATININE - SERUM 1.3 mg/dL (0.6-1.3); POTASSIUM - SERUM 4.6 mmol/L (3.5-5.1)
[2017-06-01 08:11] VITALS: BP 143/76
[2017-06-01 12:10] VITALS: BP 108/71
--- NOTE | 2017-06-01 12:46 | NUR ---
RESP UL ON 02 2L NC. TELEMETRY SR. CALL LIGHT IN REACH. WILL CONT. PLAN OF CARE.
[2017-06-01 15:26] VITALS: BP 94/62
--- NOTE | 2017-06-01 17:28 | NUR ---
OT NOTE: PT COMPLETED SIMPLE ADLS WITH SBA/SET UP. PT COMPLETED BED MOB AND EOB SITTING BALANCE WITH SBA. THANK YOU, BRANDON ACOSTA/Jarred
--- NOTE | 2017-06-01 19:28 | NUR ---
BATH WIPES AND SHAMPOO SHOWER CAP GIVEN AT PT REQUEST. AT BED SIDE TO ASSIST PT WITH BATH.
[2017-06-01 20:00] VITALS: BP 110/66
--- NOTE | 2017-06-01 20:53 | NUR ---
HS MEDS GIVEN WITH FRESH ICE WATER, PT DENIES PAIN OR NEEDS. DID STATE THAT HE DOESNT WANT TO RECIEVE THE NICOTINE PATCH ANYMORE, INFORMED HIM THAT I WILL PASS IT ON TO DAY SHIFT NURSE IN THE AM.
--- NOTE | 2017-06-01 23:58 | NUR ---
RESTING WITH EYES CLOSED, RESPERATIONS EVEN, NO S/S DISTRESS NOTED.
--- NOTE | 2017-06-02 01:54 | NUR ---
LYING IN BED WITH EYES CLOSED, CALL LIGHT IN REACH. WILL CONTINUE WITH PLAN OF CARE.
[2017-06-02 04:00] VITALS: BP 107/65
[2017-06-02 05:17] LABS: BASOPHILS 0 % (0-2); EOSINOPHILS 0.6 % (0-7); HEMATOCRIT 25.2 % (42.0-54.0); LYMPHOCYTES 13.1 % (15-50); MCH 29.5 pg (26.0-34.0); MCHC 31.7 g/dL (31.0-37.0); MEAN PLATELET VOLUME 9.8 fL (7.4-10.4); MONOCYTES 6.2 % (2-11); NEUTROPHILS 79.1 % (40-80); PLATELET COUNT 200 10x3/uL (130-400); RBC 2.71 10x6/uL (4.20-6.10); RDW 17.3 % (11.5-14.5)
[2017-06-02 05:31] LABS: INR 2.47 (0.85-1.17); PROTIME 26.9 SECONDS (11.6-15.0)
[2017-06-02 05:32] LABS: ANION GAP 7.7 mmol/L (8-16); CALCIUM 8.1 mg/dL (8.5-10.1); CARBON DIOXIDE 34.3 mmol/L (21.0-32.0); CREATININE - SERUM 1.3 mg/dL (0.6-1.3)
[2017-06-02 05:35] LABS: WBC 11.9 10x3/uL (4.8-10.8)
[2017-06-02 07:42] VITALS: BP 117/77
--- NOTE | 2017-06-02 09:10 | HP ---
PATIENT: BIGG MURRIETA MEDICAL RECORD: [id number] ACCOUNT: [id number] LOCATION:[address] : [birth year] ADMISSION DATE: 05/20/17 HISTORY AND PHYSICAL EXAMINATION HISTORY OF PRESENT ILLNESS: Mr. Murrieta is a 66-year-old male that was just discharged yesterday for COPD and new onset pulmonary embolism. He got home 6-8 hours and developed smothering sensation, presents back to the Emergency Room. He was found to be in atrial fib with rapid ventricular response. He is subsequently readmitted, placed on telemetry, and cardiology is being consulted. He is on propafenone and has gotten back to sinus. His breathing is better now and is back to his baseline. PAST MEDICAL HISTORY: Unchanged. PAST SURGICAL HISTORY: Unchanged. ALLERGIES: Unchanged. MEDICATIONS: Unchanged. See yesterday's discharge OCT. FAMILY HISTORY: Unchanged. SOCIAL HISTORY: Unchanged. REVIEW OF SYSTEMS: Was smothering, now not. No chest pain. Back to baseline with breathing. PHYSICAL EXAMINATION: GENERAL: No distress. HEENT: Now regular. LUNGS: Clear. ABDOMEN: Soft. IMPRESSION: 1. New onset atrial fibrillation, now converted. 2. Recently diagnosed pulmonary embolism. 3. Chronic obstructive pulmonary disease. PLAN: Propafenone per cardiology. Monitor for 24-48 hours. Monitor lytes. Continue with anticoagulation. See orders for plans. TRANSINT:[id number] Voice Confirmation ID: [id number] DOCUMENT ID: [id number] NORM COVINGTON DO at 0910 CC: [id number] DICTATION DATE: 05/21/17 1507 RUBBER MIXER: 05/21/17 1900 ADM IN [facility] [address] [id number]
--- NOTE | 2017-06-02 13:20 | NUR ---
Nutrition Follow Up: Pt stated that he has no appetite and is not eating well. Encouraged po intake with pt. Discussed with RETAIL PROJECT MERCHANDISER. Pt is eating 64% meal avg on a regular diet. Wt stable. +BM 05/29/17. Meds noted including Remeron. Labs reviewed. Rec continue current diet. Will continue to provide selective menus and honor food preferences. RD following.
--- NOTE | 2017-06-02 13:29 | NUR ---
OT NOTE: PT RECEIVING UPDRAFT..EDUCATED PT ON UE EXS THAT HE CAN PERFORM IN HIS ROOM. PT REPORTS THAT HE HAS BEEN GETTING UP NEEDED. WILL CONT TO TX THROUGH DURATION OF STAY TO IMPROVE STRENGTH AND FUNCTIONAL ENDURANCE
[2017-06-02 15:37] VITALS: BP 90/50
--- NOTE | 2017-06-02 18:23 | NUR ---
OT NOTE: PT COMPLETED SUPINE TO SIT WITH SPV. PT COMPLETED SIT TO STAND WITH SPV. PT COMPLETED GROOMING AT EOB WITH SPV. PT COMPLETED BUE STRENGTHENING EXS FOR INCREASED AX TOLERANCE. THANK YOU, BRANDON ACOSTA/Jarred
--- NOTE | 2017-06-02 19:32 | NUR ---
RESUMED CARE OF PT, RANDA DIAZ BED RESPIRATIONS EVEN AND UNLABORED ON 2LPM VIA NC . 69 SR ON TELEMETRY. LEFT FOREARM SALINE LOCKED. CALL LIGHT IN REACH. WILL CONTINUE TO MONITOR. SEE NURSE ASSESSMENT.
[2017-06-02 20:19] VITALS: BP 88/60
--- NOTE | 2017-06-03 03:41 | NUR ---
CALL LIGHT IN REACH, WILL CONTINUE WITH PLAN OF CARE.
[2017-06-03 04:44] VITALS: BP 109/67
--- NOTE | 2017-06-03 05:15 | NUR ---
REMAINS NPO FOR UPPER GI THIS AM. CALL LIGHT IN REACH. WILL CONTINUE WITH PLAN OF CARE.
[2017-06-03 06:56] LABS: BASOPHILS 0 % (0-2); EOSINOPHILS 0.2 % (0-7); HEMATOCRIT 23.8 % (42.0-54.0); HEMOGLOBIN 7.6 g/dL (13.5-17.5); IMMATURE GRANULOCYTES 0.5 % (0-5); LYMPHOCYTES 12.8 % (15-50); MCH 29.8 pg (26.0-34.0); MCHC 31.9 g/dL (31.0-37.0); MCV 93.3 fL (80.0-100.0); MEAN PLATELET VOLUME 9.6 fL (7.4-10.4); MONOCYTES 6.5 % (2-11); PLATELET COUNT 185 10x3/uL (130-400); RBC 2.55 10x6/uL (4.20-6.10); RDW 17.4 % (11.5-14.5); WBC 11.4 10x3/uL (4.8-10.8)
[2017-06-03 07:04] LABS: INR 2.54 (0.85-1.17); PROTIME 27.4 SECONDS (11.6-15.0)
[2017-06-03 07:09] LABS: ANION GAP 8.1 mmol/L (8-16); CALCIUM 7.5 mg/dL (8.5-10.1); CARBON DIOXIDE 32.7 mmol/L (21.0-32.0); CREATININE - SERUM 1.5 mg/dL (0.6-1.3); POTASSIUM - SERUM 3.8 mmol/L (3.5-5.1)
[2017-06-03 08:00] VITALS: BP 136/78
--- NOTE | 2017-06-03 08:16 | NUR ---
IN X-RAY FOR UPPER GI AND SBFT. WILL CONT. PLAN OF CARE.
--- NOTE | 2017-06-03 09:54 | NUR ---
BACK FROM X-RAY. DIET AND MEDS RESUMED.
--- NOTE | 2017-06-03 09:58 | NUR ---
Rehab Note- Received call from Lacey with [facility] and stated that the patient is not appropriate for either inpatient rehab nor SNF, that he is back to his baseline and in notes states that he wants to return home and continue his home health services. On 05/31/17 the patient is noted to be signed off by PT to nursing for ambulation. Informed MONET Jacobs of this phone conversation. Thank you for this referral! Lin Diana RN Clinical Liaison, [facility] Rehab
--- NOTE | 2017-06-03 11:31 | NUR ---
Patient Name: BIGG ORTIZ Encounter No: [id number] : 1950 Primary Insurance: [employer] ADV Anticipated DC Date: Planned Disposition: Home with Home Health External Planned Provider: [facility] DCP follow-up note: CM RECEIVED CALL FROM ANDREW OF INPATIENT REHAB WHO REPORTS PT'S INSURANCE COMPANY HAS CANCELLED AUTH PROCESS / DENIED INPATIENT REHAB THERAPY IN HOSPITAL HAS SIGNED OFF AND PT IS TO PRIOR LEVEL OF FUNCTIONING. CM SPOKE TO PT IN ROOM, DISCUSSED LONG-TERM REHAB, HOME HEALTH AND MEDICAL EQUIPMENT; PT DENIES DISCHARGE NEEDS, REPORTS PLAN TO GO HOME WITH [facility]. CM EXPLAINED THAT THE DOCTORS ARE LOOKING INTO WHY HE IS NOT HAVING A BOWEL MOVEMENT, PT REPORTS HE NORMALLY GOES FOR DAYS WITHOUT BOWEL MOVEMENTS AT HOME AND THIS IS NORMAL FOR HIM. IMPORTANT MESSAGE FROM MEDICARE PROVIDED AND EXPLAINED. FOR DISCHARGE HOME WITH HOME HEALTH SERVICES, NOTIFY [facility] AT [phone], FAX DISCHARGE INFORMATION TO [phone]. Brandon Perez, CASE MANAGEMENT
[2017-06-03 12:00] VITALS: BP 95/64
--- NOTE | 2017-06-03 12:48 | NUR ---
CONSENTS SIGNED FIR BLOOD TRANSFUSUIN.
[2017-06-03 15:39] VITALS: BP 92/58
--- NOTE | 2017-06-03 16:46 | NUR ---
1ST UNIT PRBC INFUSING. VS WNL. LINE IS PATENT.
--- NOTE | 2017-06-03 18:55 | NUR ---
FIRST UNIT OF PRBCS FINISHED INFUSIN, LINE FLUSHING WITH NS. NO S/S ADVERSE REACTION NOTED.
[2017-06-03 19:00] VITALS: BP 101/66
--- NOTE | 2017-06-03 20:06 | NUR ---
SECOND UNIT OF PRBCS INFUSING TO LEFT FOREARM IV. VITALS SIGNS STABLE.
--- NOTE | 2017-06-03 21:08 | NUR ---
HS MEDS GIVEN WITH FRESH ICE WAER, PT DENIES PAIN OR NEEDS, BED LOW, CL IN REACH. MULTIPLE FAMILY MEMBERS AT BED SIDE.
--- NOTE | 2017-06-03 22:05 | NUR ---
NOTIFIED BY MT THAT PTS RHYTHM HAS CHANGED FROM SR TO FLUTTER, PTS VITALS REMIAIN STABLE, WILL CONT TO MONITOR.
--- NOTE | 2017-06-03 23:20 | NUR ---
SECOND UNIT OF PRBCS, FINISHED INFUSING, LINE FLUSHING WITH NS. VITALS STABLE. NO S/S ADVERSE REACTION NOTED.
[2017-06-04] VITALS: BP 100/72
--- NOTE | 2017-06-04 03:16 | NUR ---
RESTING WITH EYES CLOSED, RESPERATIONS EVEN, NO S/S DISTRESS NOTED.
--- NOTE | 2017-06-04 03:44 | NUR ---
RESTING ON LEFT SIDE WITH EYES CLOSED. RR EVEN U/L. NO S/S OF DISCOMFORT. CALL LIGHT IN REACH.
[2017-06-04 04:00] VITALS: BP 127/73
[2017-06-04 05:50] LABS: BASOPHILS 0.1 % (0-2); EOSINOPHILS 0.4 % (0-7); IMMATURE GRANULOCYTES 0.9 % (0-5); LYMPHOCYTES 13.2 % (15-50); MCH 29.3 pg (26.0-34.0); MCHC 32.9 g/dL (31.0-37.0); MEAN PLATELET VOLUME 8.9 fL (7.4-10.4); MONOCYTES 7.5 % (2-11); NEUTROPHILS 77.9 % (40-80); PLATELET COUNT 156 10x3/uL (130-400); RDW 17.5 % (11.5-14.5); WBC 10.3 10x3/uL (4.8-10.8)
[2017-06-04 05:52] LABS: HEMATOCRIT 30.1 % (42.0-54.0); HEMOGLOBIN 9.9 g/dL (13.5-17.5); MCV 89.1 fL (80.0-100.0); RBC 3.38 10x6/uL (4.20-6.10)
[2017-06-04 06:07] LABS: INR 2.13 (0.85-1.17); PROTIME 23.8 SECONDS (11.6-15.0)
[2017-06-04 06:11] LABS: CALCIUM 7.6 mg/dL (8.5-10.1); CREATININE - SERUM 1.4 mg/dL (0.6-1.3)
--- NOTE | 2017-06-04 07:30 | NUR ---
RECEIVED PT IN BED AAOX4 RESP UNLABORED DENIES ANY NEEDS OR DISCOMFORT AT THIS TIME
[2017-06-04 12:00] VITALS: BP 98/71
--- NOTE | 2017-06-04 14:18 | NUR ---
VISITING WITH FAMILY NAD NOTED
[2017-06-04 15:58] VITALS: BP 118/74
--- NOTE | 2017-06-04 19:00 | NUR ---
RECEIVED REPORT AND ASSUMED PT CARE FROM DAY SHIFT NURSE @ THIS TIME.
[2017-06-04 20:00] VITALS: BP 98/66
--- NOTE | 2017-06-04 23:57 | NUR ---
PT RESTING WELL WITHOUT C/O OR DISTRESS NOTED. FEW NEEDS VOICED. CALL LIGHT WITHIN REACH.
[2017-06-05 06:55] LABS: BASOPHILS 0.1 % (0-2); EOSINOPHILS 0.6 % (0-7); HEMATOCRIT 33.1 % (42.0-54.0); HEMOGLOBIN 10.5 g/dL (13.5-17.5); IMMATURE GRANULOCYTES 0.7 % (0-5); LYMPHOCYTES 8.7 % (15-50); MCH 29.2 pg (26.0-34.0); MCHC 31.7 g/dL (31.0-37.0); MEAN PLATELET VOLUME 9.4 fL (7.4-10.4); MONOCYTES 5.5 % (2-11); NEUTROPHILS 84.4 % (40-80); PLATELET COUNT 168 10x3/uL (130-400); RBC 3.59 10x6/uL (4.20-6.10); RDW 17.7 % (11.5-14.5)
[2017-06-05 07:00] LABS: MCV 92.2 fL (80.0-100.0)
[2017-06-05 07:01] LABS: ANION GAP 6.7 mmol/L (8-16); CALCIUM 7.9 mg/dL (8.5-10.1); CARBON DIOXIDE 30.8 mmol/L (21.0-32.0); CREATININE - SERUM 1.2 mg/dL (0.6-1.3); POTASSIUM - SERUM 4.5 mmol/L (3.5-5.1)
[2017-06-05 07:03] LABS: INR 1.99 (0.85-1.17); PROTIME 22.6 SECONDS (11.6-15.0)
--- NOTE | 2017-06-05 07:30 | NUR ---
RECEIVED PT IN BED EYES CLOSED RESP UNLABORED NAD NOTED AT BEDSIDE
[2017-06-05 09:09] VITALS: BP 137/90
[2017-06-05 12:42] VITALS: BP 132/76
[2017-06-05 16:39] VITALS: BP 137/92
[2017-06-05 19:00] VITALS: BP 122/74
[2017-06-06] VITALS: BP 110/81; BP 124/88
[2017-06-06 05:46] LABS: BASOPHILS 0.1 % (0-2); EOSINOPHILS 0.8 % (0-7); HEMATOCRIT 32.8 % (42.0-54.0); HEMOGLOBIN 10.5 g/dL (13.5-17.5); IMMATURE GRANULOCYTES 0.6 % (0-5); LYMPHOCYTES 13.1 % (15-50); MCH 29.6 pg (26.0-34.0); MCV 92.4 fL (80.0-100.0); MEAN PLATELET VOLUME 9.2 fL (7.4-10.4); MONOCYTES 5.6 % (2-11); NEUTROPHILS 79.8 % (40-80); PLATELET COUNT 177 10x3/uL (130-400); RBC 3.55 10x6/uL (4.20-6.10); RDW 17.1 % (11.5-14.5); WBC 10.5 10x3/uL (4.8-10.8)
[2017-06-06 05:57] LABS: ANION GAP 11.3 mmol/L (8-16); CREATININE - SERUM 1.3 mg/dL (0.6-1.3); POTASSIUM - SERUM 4.3 mmol/L (3.5-5.1)
[2017-06-06 08:00] VITALS: BP 157/76
[2017-06-06 11:05] LABS: INR 1.99 (0.85-1.17); PROTIME 22.6 SECONDS (11.6-15.0)
--- NOTE | 2017-06-06 11:12 | NUR ---
telemetry caf. hr 86. resp ul on 02 2l nc. call light in reach. will cont. plan of care.
[2017-06-06] MEDS ORDERED: COUMADIN3 MG PO (11:47)
[2017-06-06] MEDS ORDERED: ATROVENT 0.02%2.5 ML UPD (11:47)
[2017-06-06] MEDS ORDERED: BROVANA15 MCG/2 M INH (11:47)
[2017-06-06] MEDS ORDERED: LOPRESSOR25 MG PO (11:48)
[2017-06-06] MEDS ORDERED: RYTHMOL PO (11:48)
[2017-06-06] MEDS ORDERED: REMERON15 MG PO (11:48)
[2017-06-06] MEDS ORDERED: BUMEX 1 MG TAB1 MG PO (11:49)
[2017-06-06] MEDS ORDERED: ULTRAM50 MG PO (11:49)
[2017-06-06] MEDS ORDERED: MIRALAX17 GM PO (11:50)
[2017-06-06] MEDS ORDERED: PULMICORT0.5 MG/21 UPD (11:50)
[2017-06-06] MEDS ORDERED: PEPCID20 MG PO (11:50)
[2017-06-06] MEDS ORDERED: PROTONIX40 MG PO (11:50)
[2017-06-06] MEDS ORDERED: CARAFATE1 G/10 ML PO (11:51)
[2017-06-06] MEDS ORDERED: XOPENEX 0.0.63 MG/3 UPD (11:52)
--- NOTE | 2017-06-06 12:59 | NUR ---
Patient Name: BIGG ORTIZ Encounter No: [id number] : 1950 Primary Insurance: [employer] MEDICARE ADV Anticipated DC Date: 06-06-2017 Planned Disposition: Inpatient Rehab External Planned Provider: [facility] DCP follow-up note: CM SPOKE TO LUCA OF INPATIENT REHAB, PT'S INSURANCE HAS APPROVED PT FOR INPATIENT REHAB. INPATIENT REHAB PLANS TO ACCEPT PT WHEN STABLE FOR REHAB. CM NOTIFIED DR. LABOY. PT NOTIFIED, IN AGREEMENT WITH DISCHARGE TO INPATIENT REHAB. IMPORTANT MESSAGE FROM MEDICARE PROVIDED AND EXPLAINED. CM CALLED AND NOTIFIED KAITLIN AT [phone] OF DISCHARGE PLAN TO INPATIENT REHAB TODAY. [facility] IN[facility]IENT [facility] TO CONTACT MED 2 NURSE WITH ROOM NUMBER WHEN READY TO ACCEPT PT AND NURSE REPORT. STEPHANIE GALEANO, CASE MANAGEMENT
--- NOTE | 2017-06-06 13:30 | EC ---
PATIENT:BIGG ORTIZ DATE OF SERVICE: 05/20/17 SEX: M MEDICAL RECORD: [id number] DATE OF : [birth year] LOCATION:D.M2 D.211 AGE OF PATIENT: 66 ADMISSION DATE: 05/20/17 REFERRING PHYSICIAN: INTERPRETING PHYSICIAN: ANN MARIE RIOS MD ECHOCARDIOGRAM REPORT ECHO CHARGES 4 ECHO COMPLETE CLINICAL DIAGNOSIS: CHF ECHOCARDIOGRAPHIC MEASUREMENTS (adult normal given) AC root (d.<3.7cm) 3.3 cm LV Septum d (<1.2 cm> 1.2 cm Valve Excursion 1.6 cm LV Septum (systole) 1.5 cm Left Atria (s.<4.0cm> 2.9 cm LVPW d(<1.2cm) 1.2 cm RV (d.<2.3cm) 1.5 cm LVPW (sytole) 1.6 cm LV diastole(<5.6CM) 4.7 cm MV E-F(>70mm/sec) cm LV systole 3.5 cm LVOT Diameter 1.7 cm MV exc.(>10mm) cm Est.ejection fraction (50-75%) % Pericardial Effusion N DOPPLER: LVIT cm/sec A 46.0 cm/sec E 131 cm/sec LA cm/sec RVSP 37.4 mmHg LVOT 87.0 cm/sec AOP1/2T m/s Asc. Ao 165 cm/sec RVOT 84.0 cm/sec RA cm/sec PA 85.0 cm/sec AV Gradient Peak 11.0 mmHg AV Mean 5.6 mmHg AV Area 1.2 cm MV Gradient Peak 8.2 mmHg MV Mean 2.7 mmHg MV Area cm COMMENTS: Wheel Tuner: 1 ERMELINDA GAMEZOE Show Horse Driver: 3 Dr. Garcai TAPE# PACS DATE OF SERVICE: 05/21/2017 Somewhat typically difficult study due to the patient's underlying lung disease and poor acoustic windows. Includes 2D echo, color flow and spectral Doppler, and M-mode. No LVH. LV internal dimensions are normal. LV appears to be globally hypokinetic with decreased EF, estimated EF 40%. Aortic valve sclerosis without stenosis by Doppler interrogation. The left atrium is normal at 2.9 cm. Mitral valve shows no prolapse. [id number]-obboccqa MR. Right-sided chamber is grossly normal. Moderate TR. ECHOCARDIOGRAM REPORT [id number] BIGG ORTIZ TRANSINT:[id number] Voice Confirmation ID: [id number] DOCUMENT ID: [id number] 06/03/2017 Edited to correct date of service, dmm. ANN MARIE RIOS MD at 1330 CC: [id number] DICTATION DATE: 05/22/17 1002 FIELD OPERATIONS COORDINATOR: 05/22/17 1046 ADM IN [place] [id number] [place] [id number]
--- NOTE | 2017-06-06 15:19 | NUR ---
Rehab Note- Patient had apparently not meet acute rehab criteria according to clinical reviewer Carolyn with [facility] and was not going to submit clinicals to the medical assembler. Received approval for acute rehab stay from the medical assembler, Auth #[id number]. Spoke with Carolyn and stated she did submit clinicals to the medical assembler but did not beleive the patient would be approved and she guessed that "Dr Urrutia did approve it since we received an authorization." The patient is to be admitted to [facility] IRF today, spoke with MONET Jacobs and gave him a room number for the patient to be admitted to. Thank you for this referral! Lin Diana RN Clinical Liaison, [facility] Rehab
--- NOTE | 2017-06-06 15:29 | NUR ---
TELEMETRY DCD. REPORT CALLED TO REHAB. UNDERSTANDING VOICED. ESCORTED BY W/C.
--- NOTE | 2017-06-09 12:47 | EC ---
PATIENT:BIGG ORTIZ DATE OF SERVICE: 05/20/17 SEX: M MEDICAL RECORD: [id number] DATE OF : [birth year] LOCATION:D.M2 D.211 AGE OF PATIENT: 66 ADMISSION DATE: 05/20/17 REFERRING PHYSICIAN: INTERPRETING PHYSICIAN: LISETH LEWIS MD ECHOCARDIOGRAM REPORT ECHO CHARGES 5 ECHO LIMITED CLINICAL DIAGNOSIS: CHF/ REASSESS FOR PULMONARY PRESSURES ECHOCARDIOGRAPHIC MEASUREMENTS (adult normal given) AC root (d.<3.7cm) 3.3 cm LV Septum d (<1.2 cm> 1.2 cm Valve Excursion 1.6 cm LV Septum (systole) 1.5 cm Left Atria (s.<4.0cm> 3.6 cm LVPW d(<1.2cm) 1.2 cm RV (d.<2.3cm) 3.8 cm LVPW (sytole) 1.6 cm LV diastole(<5.6CM) 4.8 cm MV E-F(>70mm/sec) cm LV systole 4.0 cm LVOT Diameter 1.7 cm MV exc.(>10mm) cm Est.ejection fraction (50-75%) % Pericardial Effusion N DOPPLER: LVIT cm/sec A 46.0 cm/sec E 131 cm/sec LA cm/sec RVSP 21 mmHg LVOT 87.0 cm/sec AOP1/2T m/s Asc. Ao 165 cm/sec RVOT 87 cm/sec RA cm/sec PA 109 cm/sec AV Gradient Peak 11.0 mmHg AV Mean 5.6 mmHg AV Area 1.2 cm MV Gradient Peak 8.2 mmHg MV Mean 2.7 mmHg MV Area cm COMMENTS: Footwear Stitcher: 2 KANIKA ORTIZ Staff Submarine Warfare Officer: 4 Dr. Lewis TAPE# PACS DATE OF SERVICE: 05/29/2017 PROCEDURE: Transthoracic echocardiogram. FINDINGS: 1. Left ventricle: The patient is in atrial fibrillation and there is variable RR interval. The overall ejection fraction appears to be 40% to 45%. There are no obvious regional wall motion abnormalities. The size and dimensions of the left ventricle appeared to be normal. The inflow characteristics are difficult to ascertain because on atrial dysrhythmia. ECHOCARDIOGRAM REPORT [id number] BIGG ORTIZ 2. The right ventricle is moderately enlarged and there is right ventricular hypertrophy. 3. The pericardium shows a trace pericardial effusion. There is no significant difference from the study in the last study. We were looking mainly for elevations in the right ventricular pressures given his recent history of pulmonary embolism that was not demonstrated. We did not see any evidence of significant pulmonary hypertension or significant changes in functional valvular status. TRANSINT:[id number] Voice Confirmation ID: [id number] DOCUMENT ID: [id number] 06/07/2017 Edited to correct date of service, dmm. LISETH LEWIS MD at 1247 CC: [id number] DICTATION DATE: 05/30/17 0708 APPAREL SALES LEADER: 05/30/17 1041 DIS IN 06/06/17 [facility] [address] [place] [address]
--- NOTE | 2017-06-13 11:43 | CN ---
PATIENT NAME:BIGG MURRIETA MEDICAL RECORD: [id number] : [birth year] LOCATION:[facility] D.2114 ADMIT DATE: 05/20/17 ACCOUNT: [id number] CONSULTING PHYSICIAN: MARIBEL DURON MD REFERRING PHYSICIAN: NORM COVINGTON DO DATE OF CONSULTATION: 05/22/2017 CONSULT REQUESTING PHYSICIAN: Norm Covington DO REASON FOR CONSULTATION: Bilateral PE, severe COPD, and atrial fibrillation. HISTORY OF PRESENT ILLNESS: Mr. Murrieta is a 66-year-old gentleman, very well known to me, who has severe COPD, recently discharged 2-3 days ago after treating for bilateral pulmonary embolism. The patient is on Eliquis. The patient went home and he has severe shortness of breath and also he was feeling very weak. The patient came into the ER and evaluated. He was found that he has atrial fibrillation with rapid ventricular response. Denies any chest pain. There is no associated nausea, vomiting, no diarrhea. REVIEW OF SYSTEMS: Mainly in the history of present illness. PAST MEDICAL HISTORY: 1. COPD of severe degree. 2. Chronic hypoxic respiratory failure. 3. Hypertension. 4. Hyperlipidemia. 5. Peripheral vascular disease. 6. History of coronary artery disease. ALLERGIES: There are no known drug allergies. PRESENT MEDICATIONS: PJD Group was reviewed. PERSONAL AND SOCIAL HISTORY: The patient is and lives with his . He still everyday smoker. He is a nondrinker. FAMILY HISTORY: Noncontributory. PHYSICAL EXAMINATION: GENERAL: Now, the patient is lying comfortably. He is not in acute distress. VITAL SIGNS: The blood pressure is 127/98, pulse is 78, respirations 20, temperature is 97.9, SpO2 is 97% on 2 liters nasal cannula. HEENT: Conjunctivae are pink. Sclerae nonicteric. NECK: Supple, no JVD. CHEST: Excursion is equal both sides. There was no wheeze, no rales. HEART: Rate and rhythm irregular. Normal sound. No murmur. ABDOMEN: Soft. Bowel sounds present. No hepatosplenomegaly. RECTAL: Deferred. EXTREMITIES: No cyanosis, no clubbing, no pedal edema. SKIN: Warm, normal turgor. CENTRAL NERVOUS SYSTEM: The patient is awake and alert. There is no obvious cranial nerve abnormality. The gait was not tested. CHEST RADIOGRAPH: There is hyperinflation. There is no acute infiltrate. CONSULT REPORT [id number] BIGG MURRIETA LABORATORY DATA: CBC: The WBC is 27.4, hemoglobin 14, hematocrit 42, platelet count is 215. ABG on admission, the pH is 7.44, pCO2 of 41.5, the pO2 is 98, bicarbonate 28.2. INR on admission 1.21. D-dimer was positive. IMPRESSION: 1. Paroxysmal atrial fibrillation, acute onset. 2. Possible gastrointestinal bleed with a positive occult blood. 3. Bilateral pulmonary embolism. 4. Chronic obstructive pulmonary disease of severe degree. 5. Chronic hypoxic respiratory failure. RECOMMENDATIONS: 1. We will continue supplemental oxygen. 2. Amiodarone to heart control. 3. Xopenex and ipratropium nebulizers, Brovana and budesonide nebulizer. 4. Continue IV heparin. If the GI bleeding is getting worse, the patient would need IVC filter. Discussed with the family. Discussed with Dr. Covington. Dr. Covington, thank you for involving me in the care of Mr. Murrieta. TRANSINT:[id number] Voice Confirmation ID: [id number] DOCUMENT ID: [id number] MARIBEL DURON MD at 1143 CC: NORM COVINGTON DO [id number] DICTATION DATE: 05/22/17 1458 MAINTENANCE AND CUSTODIAN SUPERVISOR: 05/22/17 1950 DIS IN 06/06/17 [place] [id number] [place] [address]
== END 2017-06-06 15:30 | DRG 308 ==
LOC: D.ER 21:34 → D.ICU 23:25 → D.M2 23:25 → D.ER 05-21 00:05 → D.M2 05-21 00:05 → D.ICU 05-21 18:49 → D.M2 05-25 21:32
PROVIDERS: Family Medicine; Internal Medicine Gastroenterology; Internal Medicine Pulmonary Disease; ADMIT Family Medicine
DX: I48.0 Paroxysmal atrial fibrillation (principal); I26.99 Other pulmonary embolism without acute cor pulmonale; K29.71 Gastritis, unspecified, with bleeding; J44.1 Chronic obstructive pulmonary disease with (acute) exacerbation; N17.9 Acute kidney failure, unspecified; J96.11 Chronic respiratory failure with hypoxia; D62 Acute posthemorrhagic anemia; I48.92 Unspecified atrial flutter; I12.9 Hypertensive chronic kidney disease with stage 1 through stage 4 chronic kidney disease, or unspecified chronic kidney disease; N18.9 Chronic kidney disease, unspecified; F54 Psychological and behavioral factors associated with disorders or diseases classified elsewhere; R73.9 Hyperglycemia, unspecified; I25.10 Atherosclerotic heart disease of native coronary artery without angina pectoris; K25.9 Gastric ulcer, unspecified as acute or chronic, without hemorrhage or perforation; Z72.0 Tobacco use